=== PATIENT | male | born 1960 | race American Indian/Alaskan Native ===

== ENCOUNTER 2017-03-01 15:42 | Inpatient (IN) | payer MEDICAID, OTHER ==
[2017-03-01 16:26] LABS: BASO # 0.1 K/uL (0.0-0.2); BASO % 0.9 % (0.0-2.0); EOS # 0.3 K/uL (0.0-0.7); EOS % 4.4 % (0.0-4.0); HEMATOCRIT 40.5 % (35.0-51.0); LYMPH # 2.6 K/uL (1.0-4.3); LYMPH % 34.7 % (20.0-40.0); MEAN CELL VOLUME 85.1 fL (80.0-94.0); MEAN CORPUSCULAR HGB CONC 32.9 g/dL (33.0-37.0); MEAN PLATELET VOLUME 9.3 fL (7.2-11.7); MONO # 0.4 K/uL (0.0-0.8); NRBC % 0.2 % (0.0-2.0); WHITE BLOOD COUNT 7.5 K/uL (4.8-10.8)
[2017-03-01 16:30] LABS: URINE BILIRUBIN NEGATIVE (NEGATIVE); URINE BLOOD NEGATIVE (NEGATIVE); URINE COLOR Yellow (YELLOW); URINE GLUCOSE (UA) NORMAL (Normal); URINE KETONE NEGATIVE (NEGATIVE); URINE LEUKOCYTE ESTERASE NEG Leu/uL (Negative); URINE PROTEIN NEGATIVE (NEGATIVE); URINE UROBILINOGEN NORMAL mg/dL (0.2-1.0); WBC URINE 1 /hpf (0-5)
[2017-03-01 17:12] LABS: CHLORIDE 102 mmol/L (98-107)
[2017-03-01 17:13] LABS: POTASSIUM 4.1 mmol/L (3.6-5.2); SODIUM 142 mmol/L (132-148)
[2017-03-01 17:15] LABS: GFR AFRICAN-AMERICAN > 60
[2017-03-01 17:16] LABS: ALB/GLOB RATIO 1.1 (1.0-2.1); ALKALINE PHOSPHATASE 77 U/L (38-126); ALT/SGPT 33 U/L (21-72); AST/SGOT 29 U/L (17-59); BILIRUBIN,TOTAL 0.6 mg/dL (0.2-1.3); BLOOD UREA NITROGEN 15 mg/dL (9-20); CALCIUM 9.6 mg/dl (8.6-10.4); CARBON DIOXIDE 29 mmol/L (22-30); GLUCOSE,RANDOM 100 mg/dL (75-110); TOTAL PROTEIN 8.5 g/dL (6.3-8.3)
[2017-03-01 17:17] LABS: ALCOHOL SERUM 29 mg/dl (0-10)
--- NOTE | 2017-03-01 17:31 | C.PDOC ---
History Of Present Illness 56 y/o male presents to ED requesting detox from snorting Heroin. Patient is pre -screened and reports last using earlier today 3 bags. Patient denies fever, chills, sob or any other complaints at this time. Time Seen by Provider: 03/01/17 16:00 Chief Complaint (Nursing): Substance Abuse History Per: Patient History/Exam Limitations: no limitations Onset/Duration Of Symptoms: Hrs Current Symptoms Are (Timing): Still Present Past Medical History Reviewed: Historical Data, Nursing Documentation, Vital Signs Vital Signs: Last Vital Signs Temp 98 F 03/01/17 19:20 Pulse 81 03/01/17 19:20 Resp 18 03/01/17 19:20 BP 143/90 03/01/17 19:20 Pulse Ox 99 03/01/17 19:20 - Medical History PMH: HTN Family History: States: No Known Family Hx - Social History Hx Alcohol Use: No Hx Substance Use: Yes - Immunization History Hx Tetanus Toxoid Vaccination: No Hx Influenza Vaccination: No Review Of Systems Except As Marked, All Systems Reviewed And Found Negative. Constitutional: Negative for: Fever, Chills, Sweats Cardiovascular: Negative for: Chest Pain Skin: Negative for: Rash Neurological: Negative for: Weakness, Headache, Dizziness Psych: Negative for: Anxiety Physical Exam - Physical Exam Appears: No Acute Distress Skin: Warm Head: Atraumatic, Normacephalic Oral Mucosa: Moist Neck: Normal ROM Gastrointestinal/Abdominal: Soft, No Tenderness, No Guarding, No Rebound, Other (Obese abdomen) Extremity: Normal ROM, Capillary Refill (<2 seconds) Neurological/Psych: Oriented x3, Normal Speech, Normal Cognition ED Course And Treatment - Laboratory Results Result Diagrams: 03/01/17 16:23 03/01/17 16:23 Lab Interpretation: Abnormal (tox + opiates, etoh 29) O2 Sat by Pulse Oximetry: 94 (RA) Pulse Ox Interpretation: Normal Reevaluation Time: 17:32 Reassessment Condition: Improved - Physician Consult Information Outcome Of Conversation: d/w Crisis @ 1600 and 1730, ok to detox Medical Decision Making Medical Decision Making: opate abuse Disposition Doctor Will See Patient In The: Hospital Counseled Patient/Family Regarding: Studies Performed, Diagnosis - Disposition Disposition: HOSPITALIZED Disposition Time: 17:32 Condition: GOOD - Clinical Impression Clinical Impression: Opiate abuse, continuous - Scribe Statement The provider has reviewed the documentation as recorded by the Yi Hernandez All medical record entries made by the Yi were at my direction and personally dictated by me. I have reviewed the chart and agree that the record accurately reflects my personal performance of the history, physical exam, medical decision making, and the department course for this patient. I have also personally directed, reviewed, and agree with the discharge instructions and disposition.
[2017-03-01] MEDS ORDERED: Aluminum Hydroxide/Magnesium Hydroxide Susp (30 mL) PO PRN (19:11)
[2017-03-02] MEDS ORDERED: Buprenorphine Hydrochloride 2 mg SL ONE ×3 (10:30→15:00)
--- NOTE | 2017-03-02 13:57 | PCM.PSYCH ---
Initial Psychiatric Evaluation - Initial Psychiatric Evaluation Type of Admission: Voluntary Legal Status: Capacity Chief Complaint (in patient's own words): "I need detox" History of Present Illness and Precipitating Events: The patient is seen, chart reviewed and case discussed. This is a 56-year-old -N[place]alese male, single with 3 children, living alone but his 90-year-old mother moved with him. She is with a family friend now. The patient is unemployed. He is a poor historian. Referred by [facility]. The patient reports using get around 5 bags of heroin since age 28. This is his second detox and he was in [facility] rehab in 2006, following release from shelter. He has not used methadone or Suboxone in the past. He describes withdrawal symptoms already and will be treated. He adamantly denies all other drug, alcohol and cigarette use. Past psych history: Denies Family psych history: Denies Medical history: Hypertension Current Medications: Active Medications Generic Name Dose Route Start Last Admin Trade Name Freq PRN Reason Stop Dose Admin Al Hydrox/Mg Hydrox/Simethicone 30 ml 03/01/17 19:11 Maalox 30 Ml PO TID PRN Indigestion / Heartburn Amlodipine Besylate 10 mg 03/02/17 10:00 03/02/17 10:11 Norvasc PO 10 mg DAILY ALLISON Administration Clonidine HCl 0.1 mg 03/01/17 19:11 Catapres PO Q8 PRN COWS Score More or Equal to 5 Hydroxyzine HCl 50 mg 03/01/17 19:12 03/01/17 22:13 Atarax PO 50 mg Q6H PRN Administration Anxiety Ibuprofen 600 mg 03/01/17 19:12 Motrin Tab PO Q6H PRN Pain, moderate (4-7) Loperamide HCl 2 mg 03/01/17 19:11 Imodium PO Q8 PRN Diarrhea Ondansetron HCl 4 mg 03/01/17 19:11 Zofran Tab PO Q8 PRN Nausea/Vomiting Trazodone HCl 100 mg 03/01/17 19:12 03/01/17 22:13 Desyrel PO 100 mg HS PRN Administration Insomnia Past Psychiatric History - Past Psychiatric History Previous Treatment History: None Pertinent Medical Hx (Current Medical&Sleep Prob, Allergies): Allergies Allergy/AdvReac Type Severity Reaction Status Date / Time No Known Allergies Allergy Unverified 03/01/17 15:47 Naproxen [Anaprox DS] 550 mg PO PRN PRN 03/01/17 amLODIPine [Norvasc] 10 mg PO DAILY 03/01/17 Review of Systems - Neurological Neurological: UNREMARKABLE - Psychiatric Psychiatric: Abnormal Sleep Pattern, Anxiety, Irritability. absent: Hallucinations, Homicidal Ideation, Suicidal Ideation Mental Status Examination - Personal Presentation Personal Presentation: Looks older than stated age - Affect Affect: Constricted - Motor Activity Motor Activity: Calm - Reliability in Providing Information Reliability in Providing Information: Fair - Speech Speech: Organized - Mood Mood: Anxious, Other (irate) - Formal Thought Process Formal Thought Process: No Impairment - Cognitive Functions Orientation: Person, Place, Situation, Time Sensorium: Alert Attention/Concentration: Easily distracted Abstract Thinking: [place] Estimate of Intelligence: Below average Judgement: Intact, as evidence by: Insight regarding need for hospitalization Memory: Recent intact, as evidence by: Ability to recall events of the day, Remote impaired as evidenced by: Inability to recall sig life events - Risk Risk: Withdrawal, Diminished functioning - Strength & Assets Inventory Strength & Assets Inventory: Cooperative - Limitations Limitations: Living alone DSM 5 DX - DSM 5 DSM 5 Diagnosis: Opioid withdrawal Opioid use d/o - severe - Recommended/Plan of Treatment Treatment Recommendations and Plan of Treatment: Subutex detox As needed meds and vitamins Attend groups and activities [place] for abstinence and CBT for relapse prevention Support and psychoeducation Consider and encourage MAT Refer to after care 33 min Projected ELOS: 4 days Prognosis: Good with treatment Discharge Plan and Discharge Criteria: No wdw sxs Refer back to [facility]
[2017-03-03] MEDS: Buprenorphine Hydrochloride 2 mg SL SCH (09:38)
[2017-03-04] MEDS: Buprenorphine Hydrochloride 2 mg SL SCH (09:39)
[2017-03-04 15:57] VITALS: RESP 18
--- NOTE | 2017-03-04 21:20 | PCM.PYCHPN ---
Psychiatric Progress Note - Psychiatric Progress Note Patient seen today, length of contact: 15 min Patient Chief Complaint: my body hurts and i can't sleep Problems Identified/Issues Discussed: withdrawal symptoms PAWS triggers Medical Problems: nothing acute DSM 5 Symptoms Update: reviewed Medication Change: Yes (increase trazodone methadone taper) Medical Record Reviewed: Yes Mental Status Examination - Cognitive Function Orientation: Person, Place, Situation, Time Memory: Intact Attention: WNL Concentration: WNL Association: WNL Fund of Knowledge: WNL - Mood Mood: Anxious, Other (irate) - Affect Affect: Constricted - Speech Speech: Appropriate - Formal Thought Process Formal Thought Process: No Impairment - Suicidal Ideation Suicidal Ideation: No - Homicidal Ideation Homicidal Ideation: No Goal/Treatment Plan - Goal/Treatment Plan Need for Continued Stay: Discharge may exacerbated symptoms Progress Toward Problem(s) and Goals/Treatment Plan: opiate withdrawal subutex taper attending groups opate use disorder planning to attend an outpatient IOP rehab Estimated Date of D/C: 03/05/17 - Smoking Cessation Smoking Cessation Initiated: Yes
--- NOTE | 2017-03-04 21:29 | PCM.PYCHPN ---
Psychiatric Progress Note - Psychiatric Progress Note Patient seen today, length of contact: 15 min Patient Chief Complaint: I did not sleep again the bed is very uncomfortable Problems Identified/Issues Discussed: PAWS aftercare Medical Problems: nothong acute Diagnostic Results: reviewed Medication Change: Yes (subutex taper) Medical Record Reviewed: Yes Mental Status Examination - Cognitive Function Orientation: Person, Place, Time Memory: Intact Attention: WNL Concentration: WNL Association: WNL - Mood Mood: Anxious, Other (irate) - Affect Affect: Constricted - Speech Speech: Appropriate - Formal Thought Process Formal Thought Process: No Impairment - Suicidal Ideation Suicidal Ideation: No - Homicidal Ideation Homicidal Ideation: No Goal/Treatment Plan - Goal/Treatment Plan Need for Continued Stay: Remain at risks for inpatient hospitalization, Discharge may exacerbated symptoms Progress Toward Problem(s) and Goals/Treatment Plan: opiate withdrawal subutex taper attending groups opate use disorder planning to attend an outpatient [facility] rehab Estimated Date of D/C: 03/05/17 - Smoking Cessation Smoking Cessation Initiated: Yes
--- NOTE | 2017-03-05 08:51 | PCM.PYCHDC ---
Mental Status Examination - Mental Status Examination Orientation: Person, Place, Situation, Time Memory: Intact Mood: Anxious Affect: Constricted Speech: Appropriate Attention: WNL Concentration: WNL Association: WNL Fund of Knowledge: WNL Formal Thought Process: No Impairment Suicidal Ideation: No Current Homicidal Ideation?: No Discharge Summary - Discharge Note Reason for Hospitalization: Heroin detox Consultations:: List each consultation separately and include: 1. Reason for request. 2. Findings. 3. Follow-up Summary of Hospital Course include:: 1. Description of specific treatment plan utilized for patients during their course of treatmen. 2. Summarize the time- course for resolution of acute symptoms and/or regressed behaviors. 3. Describe issues identified and worked on during hospitalization. 4. Describe medication utilized. 5. Describe medical problems identified and treated. 6. Reassessment of suicide risk Summary of Hospital Course: On admission: The patient is seen, chart reviewed and case discussed. This is a 56-year-old -[place] male, single with 3 children, living alone but his 90-year-old mother moved with him. She is with a family friend now. The patient is unemployed. He is a poor historian. Referred by [facility] IOP. The patient reports using get around 5 bags of heroin since age 28. This is his second detox and he was in [facility] rehab in 2006, following release from long term. He has not used methadone or Suboxone in the past. He describes withdrawal symptoms already and will be treated. He adamantly denies all other drug, alcohol and cigarette use. Past psych history: Denies Family psych history: Denies Medical history: Hypertension Hospital course: The pt was admitted and started on treatment with psychotherapy, support, psychoeducation and medications. PR and CBT used. The pt attended groups and activities, as well as milieu therapy. All the risks and benefits of medications are discussed and the patient understood and agreed. After care discussed with the patient. He went to [facility] - Final Diagnosis (DSM 5) Condition upon Discharge: GOOD DSM 5: Opioid withdrawal Opioid use d/o - severe Disposition: HOME/ ROUTINE Follow-up Treatment Plan: Continue below medications after discharge. Follow after care plan as discussed. Use relapse prevention skills Return to ER or call 911 if suicidal, homicidal or symptoms relapse. Stay away from stress, alcohol and drugs. See primary doctor once a year. Prescriptions/Medication Reconciliation: amLODIPine [Norvasc] 10 mg PO DAILY #30 tab traZODone [Desyrel] 150 mg PO HS #30 tab - Smoking Cessation Smoking Cessation Medication prescribed: No - Antipsychotic Medications Pt discharged on 2 or more routine antipsychotic medications: No
[2017-03-05 10:14] VITALS: BP 135/78; PULSE 70; TEMP 98; O2SAT 98
[2017-03-05] MEDS: Buprenorphine Hydrochloride 2 mg SL SCH (10:20)
== END 2017-03-05 11:15 | disposition home or self-care (01) | DRG 745 ==
LOC: C.ER 15:42 → C.7D 17:31
PROVIDERS: ADMIT Psychiatry & Neurology Psychiatry; ATTEND Psychiatry & Neurology Psychiatry
PROC: HZ52ZZZ Individual Psychotherapy for Substance Abuse Treatment, Cognitive-Behavioral (ICD-10-PCS; principal; 2017-03-01)
PROC: HZ2ZZZZ Detoxification Services for Substance Abuse Treatment (ICD-10-PCS; 2017-03-01)
PROC: HZ56ZZZ Individual Psychotherapy for Substance Abuse Treatment, Psychoeducation (ICD-10-PCS; 2017-03-01)
PROC: HZ59ZZZ Individual Psychotherapy for Substance Abuse Treatment, Supportive (ICD-10-PCS; 2017-03-01)
PROC: HZ46ZZZ Group Counseling for Substance Abuse Treatment, Psychoeducation (ICD-10-PCS; 2017-03-01)
PROC: HZ42ZZZ Group Counseling for Substance Abuse Treatment, Cognitive-Behavioral (ICD-10-PCS; 2017-03-01)
PROC: HZ2ZZZZ Detoxification Services for Substance Abuse Treatment (ICD-10-PCS; 2017-03-01)
DX: F11.23 Opioid dependence with withdrawal (principal); I10 Essential (primary) hypertension